=== PATIENT | male | born 1940 | race Two or more races ===

== ENCOUNTER 2022-05-25 12:07 | Emergency (ER) | payer MEDICARE, OTHER, SELFPAY ==
[2022-05-25 12:22] VITALS: BP 142/87; PULSE 63; RESP 16; TEMP 37; O2SAT 99
[2022-05-25 12:24] VITALS: BP 142/87; PULSE 63; RESP 16; TEMP 37; O2SAT 99
--- NOTE | 2022-05-25 13:19 | ED.GENADULT ---
HPI - General Adult General Chief complaint: Dizziness Stated complaint: dizziness, left ear pain, chest congestion Time Seen by Provider: 05/25/22 13:09 Source: patient Mode of arrival: ambulatory Limitations: no limitations History of Present Illness HPI narrative: Patient presents today complaining of a 2 week history of nasal congestion, rhinorrhea with left ear pain and fullness x4 days. He does report a bit of dizziness x2 days that has improved since yesterday. He currently rates his ear pain 2/10 and has been taking Tylenol. Related Data Home Medications Medication Instructions Recorded Confirmed atorvastatin 20 mg tablet mg 05/25/22 donepezil 10 mg tablet mg 05/25/22 eszopiclone 3 mg tablet mg 05/25/22 05/25/22 lisinopril 5 mg tablet mg 05/25/22 metoprolol succinate 25 mg mg PO 05/25/22 tablet,extended release 24 hr nitroglycerin 0.4 mg sublingual mg 05/25/22 tablet Allergies Allergy/AdvReac Type Severity Reaction Status Date / Time No Known Allergies Allergy Unknown Verified 05/25/22 12:23 Review of Systems Review of Systems: CONSTITUTIONAL: Denies body aches, fever, chills, or sweats. EYES: Denies visual changes, redness, or discharge. ENT: Denies sore throat. + left ear pain and fullness, congestion, rhinorrhea CARDIOVASCULAR: Denies chest pain, palpitations, or edema. RESPIRATORY: Denies dyspnea.+ cough GASTROINTESTINAL: Denies abdominal pain, nausea, vomiting, or diarrhea. GENITOURINARY: Denies dysuria or hematuria. SKIN: Denies rash, itching, or wounds. MUSCULOSKELETAL: Denies back pain, joint pain, or myalgia. NEUROLOGIC: Denies headache, numbness, tingling, or weakness.+ dizziness PSYCH: Denies depression or anxiety. PMFSH Comments At time of signature, I have reviewed and agree with nursing past medical, surgical, social and family history unless otherwise noted. Please see nursing chart for further information. There is no relevant family history pertinent to the presenting complaint Exam Narrative: GENERAL: Well-appearing, well-nourished, and in no acute distress. HEAD: Normocephalic, atraumatic. EYES: EOMI. No redness or drainage. Conjunctivae normal. ENT: Mucous membranes pink and moist. Nares congested with rhinorrhea. Right TM normal. Left TM slightly erythematous and bulging with clear fluid. Throat normal. Uvula midline. NECK: Normal AROM. Supple. No lymphadenopathy. CHEST: No respiratory distress. Clear to auscultation. HEART: Regular rate and rhythm. No murmur appreciated. Normal peripheral pulses. EXTREMITIES: Normal range of motion. No edema. SKIN: Warm, dry, no rash. Capillary refill normal. Normal skin turgor. NEURO: No focal deficits. Alert and oriented x3. Gait steady. PSYCH: Normal affect. No signs of depression or anxiety. Course Course Level of Care: Express Care Visit Vital Signs Vital signs: Vital Signs Temperature 98.6 F 05/25/22 12:22 Pulse Rate 63 05/25/22 12:22 Respiratory Rate 16 05/25/22 12:22 Blood Pressure 142/87 H 05/25/22 12:22 Pulse Oximetry 99 05/25/22 12:22 Temperature 98.6 F 05/25/22 12:24 Pulse Rate 63 05/25/22 12:24 Respiratory Rate 16 05/25/22 12:24 Blood Pressure 142/87 H 05/25/22 12:24 Pulse Oximetry 99 05/25/22 12:24 Reviewed. Pt has been instructed to follow up with his PCP regarding his elevated blood pressure today. Medical Decision Making Differential Diagnosis Differential Diagnosis: URI, sinusitis, bronchitis, AOM, otitis externa, serous otitis Vital Signs Vital Signs: Vital Signs Temperature 98.6 F 05/25/22 12:22 Pulse Rate 63 05/25/22 12:22 Respiratory Rate 16 05/25/22 12:22 Blood Pressure 142/87 H 05/25/22 12:22 Pulse Oximetry 99 05/25/22 12:22 Temperature 98.6 F 05/25/22 12:24 Pulse Rate 63 05/25/22 12:24 Respiratory Rate 16 05/25/22 12:24 Blood Pressure 142/87 H 05/25/22 12:24 Pulse Oximetry 99 05/25/22 12:24
== END 2022-05-25 13:30 | disposition home or self-care (01) ==
PROVIDERS: Emergency Provider Nurse Practitioner; PCP Internal Medicine
DX: H66.92 Otitis media, unspecified, left ear (principal); J01.90 Acute sinusitis, unspecified; G30.9 Alzheimer's disease, unspecified; F02.80 Dementia in other diseases classified elsewhere, unspecified severity, without behavioral disturbance, psychotic disturbance, mood disturbance, and anxiety; E78.00 Pure hypercholesterolemia, unspecified; I10 Essential (primary) hypertension; Z98.42 Cataract extraction status, left eye; Z98.41 Cataract extraction status, right eye; Z95.5 Presence of coronary angioplasty implant and graft
CPT/HCPCS: 99203; G0463

== ENCOUNTER 2022-06-17 10:31 | Emergency (ER) | payer MEDICARE, OTHER, SELFPAY ==
--- NOTE | ~2022-06-17 | XR_ITS ---
XR chest 2V DATE: 06/17/2022 11:15 INDICATION: Cough, fever TECHNIQUE: 2 views COMPARISON: 01/10/2011 2 view chest FINDINGS: There is bilateral hyperinflation. No pulmonary infiltrate or consolidation, pleural effusi on or pulmonary vascular congestion or pneumothorax. Heart size is within normal range. There is aortic arch calcification. Diffuse osteopenia. Thoracic dextroscoliosis. Surgical clips overlie the left upper quadrant of the abdomen. IMPRESSION: Bilateral hyperinflation suggesting COPD No active cardiac pulmonary disease Reviewed, dictated and finalized at location A. [employer]
[2022-06-17 11:01] VITALS: BP 158/70; PULSE 83; RESP 16; TEMP 39; O2SAT 97
--- NOTE | 2022-06-17 11:21 | ED.URI ---
HPI - URI/Sore Throat General Chief Complaint: Upper Respiratory Infection Stated Complaint: cough, shoulder/neck pain, congestion Time Seen by Provider: 06/17/22 11:05 Source: patient Mode of arrival: ambulatory Limitations: no limitations History of Present Illness HPI Narrative: Mariusz is a an 81-year-old male patient presenting to the clinic today with complaints of cough, shoulder neck pain, congestion, shortness of breath, dizziness, frequent falling and fever. He reports he was seen here 2 weeks ago was given prescription for prednisone and amoxicillin and that helped however since he has finished his symptoms have began again. His temperature is 39? C in the clinic today MD elicited complaint: sore throat and nasal congestion Related Data Home Medications Medication Instructions Recorded Confirmed atorvastatin 20 mg tablet 20 mg PO DAILY 05/25/22 06/17/22 donepezil 10 mg tablet 10 mg PO DAILY 05/25/22 06/17/22 eszopiclone 3 mg tablet 3 mg PO DAILY 05/25/22 06/17/22 lisinopril 5 mg tablet 5 mg PO DAILY 05/25/22 06/17/22 metoprolol succinate 25 mg 12.5 mg PO DAILY 05/25/22 06/17/22 tablet,extended release 24 hr nitroglycerin 0.4 mg sublingual 0.4 mg sublingual DIRECTED PRN 05/25/22 06/17/22 tablet Chest Pain Allergies Allergy/AdvReac Type Severity Reaction Status Date / Time No Known Allergies Allergy Unknown Verified 06/17/22 11:01 Review of Systems Review of Systems: Pertinent positives per HPI. Patient denies any rash, headache, visual changes, dizziness, chest pain, palpitations, nausea, vomiting, diarrhea, constipation, abdominal pain, or any urinary issues. PMFSH Comments At the time of my signature, I reviewed and agree with the nursing past medical, surgical, social, and family history. There is no relevant family history pertinent to the patient complaint. Exam Narrative: General: Well-developed, well nourished, in no apparent distress Head: Normocephalic, atraumatic Eyes: Pupils equally round and reactive to light bilaterally, EOM intact, sclera and conjunctive clear, no discharge, lids normal Ears: TMs intact and clear, ear canals clear, no drainage, grossly hearing normal. Nose: Nares patent, no discharge, no inflammation, no sinus tenderness. Mouth: Oral pharynx without lesions or masses, good dentition, MMM. Neck: Supple, trachea midline, no enlargement of anterior or posterior cervical nodes, no thyroid masses or goiter palpable. Cardio: Regular rate and rhythm, s1 and s2 normal, no murmur appreciated. Resp: Diminished breath sounds with faint crackles in the lower bases, no rhonchi, wheezing or rubs Course Course Emergency Course: Portions of this record may have been created with voice recognition software. Level of Care: Express Care Visit Vital Signs Vital signs: Vital Signs Temperature 39.0 C H 06/17/22 11:01 Pulse Rate 83 06/17/22 11:01 Respiratory Rate 16 06/17/22 11:01 Blood Pressure 158/70 H 06/17/22 11:01 Pulse Oximetry 97 06/17/22 11:01 Temperature 39.0 C H 06/17/22 11:01 Pulse Rate 83 06/17/22 11:01 Respiratory Rate 16 06/17/22 11:01 Blood Pressure 158/70 H 06/17/22 11:01 Pulse Oximetry 97 06/17/22 11:01 Vital signs reviewed Transfer Transfered to: [facility] Transportation: Other (Private car) Transfer rationale: Shortness of breath, unsteady gait, feeling dizzy, coughing congestion, COPD Accepting physician: Love RN took a reports but would not give a accepting provider Transfer comments: Transfer via private car MDM - URI/Sore Throat MDM Narrative Medical decision making narrative: At the time of visit patient is resting comfortably in the exam chair. COVID and influenza testing was negative in the clinic today chest x-ray suggestive of COPD. No pneumonia seen. I feel that the patient needs further workup in the emergency room to get some blood testing done. Patient would like to go to [facility]
[2022-06-17 11:50] VITALS: TEMP 37.7
== END 2022-06-17 11:50 | disposition short-term general hospital (02) ==
PROVIDERS: Emergency Provider Nurse Practitioner Family; PCP Internal Medicine
DX: J44.1 Chronic obstructive pulmonary disease with (acute) exacerbation (principal); J06.9 Acute upper respiratory infection, unspecified; Z20.822 Contact with and (suspected) exposure to COVID-19; G30.9 Alzheimer's disease, unspecified; F02.80 Dementia in other diseases classified elsewhere, unspecified severity, without behavioral disturbance, psychotic disturbance, mood disturbance, and anxiety; E78.00 Pure hypercholesterolemia, unspecified; I10 Essential (primary) hypertension; Z95.5 Presence of coronary angioplasty implant and graft; Z98.42 Cataract extraction status, left eye; Z98.41 Cataract extraction status, right eye
CPT/HCPCS: 71046; 87426; 87804; 99213; C9803; G0463

== ENCOUNTER 2024-11-26 15:23 | Emergency (ER) | payer OTHER, MEDICARE, SELFPAY ==
--- NOTE | ~2024-11-26 | XR_ITS ---
HISTORY: laceration, injury, PATIENT BANDAGED, UNABLE TO REMOVE COMPARISON: None TECHNIQUE: 2 views of the right third digit were performed FINDINGS: No acute or subacute fracture. 2.7 mm osseous density anterior to the distal third of the third metacarpal for which a small avulsio n fracture is suspected. Joint spaces are narrowed but preserved and alignment is maintained. Soft tissues are unremarkable without radiopaque foreign body or significant calcification. Age-appropriate mineralization. IMPRESSION: Findings anterior to the distal third of the third metacarpal which a small avulsion fra cture is suspected. Reviewed, dictated and finalized at location A. IMPRESSION: Findings anterior to the distal third of the third metacarpal whic h a small avulsion fracture is suspected.
--- OUTSIDE RECORDS SUMMARY | 2024-11-26 15:28 | XMS_ITS | Clinical Summary ---
Author Organization [facility] Address [address] [place] [address] Care Team Providers Care Process Engineer Name Role Phone Calvin White MD Primary Care Provider Source Comments [facility],non-owned Affiliates and Associated Physician Practices is amultiple site organization consisting of ambulatory clinics and hospital sitesin [place], [place], [place] and [place]. This disclosure is being madepursuant to the Care Everywhere program and may not contain all information available regarding this patient. Last updated 18.[facility] Allergies No known active allergies Medications * Be aware that medications may not be up to date on this document. Alwaysverify current medications with the patient. aspirin (ASPIRIN) 81 MG tablet Take 81 mg by mouth once daily Active atorvastatin (LIPITOR) 20 MG tablet Take 20 mg by mouth at bedtime Active LISINOPRIL PO Active METOPROLOL SUCCINATE ER PO Acti ve Social History Tobacco Use Types Packs/Day Years Used Date Smoking Tobacco: Former Cigarettes Smokeless Tobacco: Never Sex and Gender Information Value Date Recorded Sex Assigned at Not on file Legal Sex Male 10:23 AM CDT Gender Identity Not on file Sexual Orientation Not on file Last Filed Vital Signs Vital Sign Reading Time Taken Comments Blood Pressure 128/68 03/30/2017 10:47 AM CDT Pulse 62 03/30/2017 10:47 AM CDT Temperature 36.6 C (97.8 F) 03/30/2017 10:47 AM CDT Respiratory Rate 16 03/30/2017 10:47 AM CDT Oxygen Saturation 98% 03/30/2017 10:47 AM CDT Inhaled Oxygen Concentration - - Weight 72.6 kg (160 lb) 03/30/2017 10:47 AM CDT Height 170.2 cm (5' 7 ) 03/30/2017 10:47 AM CDT Body Mass Index 25.06 03/30/2017 10:47 AM CDT Plan of Treatment Health Maintenance Due Date Last Done Comments DTAP/TDAP/TD VACCINES (1 - Tdap) 1958 PNEUMOCOCCAL VACCINE 50+ (1 of 1 - PCV) 1989 ZOSTER VACCINE (1 of 2) 1989 Respiratory Syncytial Virus (RSV) Vaccine Pt: or over 60 yrs (1 - 1-dose 75+ series) 2014 COVID-19 VACCINE ( - 2023-2 5 season) 2024 DEPRESSION SCREENING 07/23/2024 INFLUENZA VACCINE (Season Ended) 2025 HEPATITIS B VACCINE Aged Out No longe r eligible based on patient's age to complete this topic HIB VACCINE Aged Out No longer eligi ble based on patient's age to complete this topic HPV VACCINE Aged Out No longer eligi ble based on patient's age to complete this topic MENINGOCOCCAL (Group B) VACC INE SHARED DECISION-MAKING Aged Out No longer eligibl e based on patient's age to complete this topic MENINGOCOCCAL GROUPS A/C/Y/W VACCINE Aged Out No longer eligible b ased on patient's age to complete this topic Insurance MEDICARE [employer] Care [employer] Process Engineer Relationship Specialty Start Date End Date Calvin White MD [address] [place] [address] PCP - General Internal Medicine 03/30/17
--- OUTSIDE RECORDS SUMMARY | 2024-11-26 15:28 | XMS_ITS | Referral Summary ---
Author Organization [facility] Address [address] [place] [address] Care Team Providers Care Bandoleer Packer Name Role Phone Calvin White MD Primary Care Provider Encounters Date Type Department Care Team Description 10/30/2024 1:20 PM CDT Office Visit [facility] [address] [place] [address] Medical Office Building [address] [place] [phone] Jessa Rodrigez, CONVERTING SUPERVISOR Benign prostatic hyperplasia with weak urinary stream (Primary Dx); Nocturia 09/04/2024 1:00 PM VIDEO EFFECTS EDITOR Office Visit [facility] Medical Office Building [address] [place] [phone] Jessa Rodrigez, MARVIN Weak urinary stream (Primary Dx); Mixed stress and urge urinary incontinence 09/03/2024 11:00 AM VIDEO EFFECTS EDITOR Office Visit [address] [phone] Calvin White MD Urinary incontinence, unspecified type (Primary Dx); Urinary frequency from Last 3 Months Allergies No known active allergies Medications aspirin 81 mg tabletIndicatio ns:Myocardial Reinfarction Prevention,prev ention of thrombosis Take 1 tablet (81 mg total) by mouth nightly 07/07/20 14 Active cyanocobalamin (Vitamin B-12) 1,000 mcg tabletIndicatio ns:Prevention of Vitamin B12 Deficiency Take 1 tablet (1,000 mcg total) by mouth daily with lunch Active acetaminophen (TYLENOL) 500 mg tablet Take 1 tablet (500 mg total) by mouth every 6 (six) hours as needed for pain Active ibuprofen (ADVIL,MOTRIN) 200 mg tab/cap Take 1 tablet/capsule (200 mg total) by mouth every 6 (six) hours as needed for pain Active loratadine (CLARITIN) 10 mg tabletIndicatio ns:Allergic Rhinitis Take 1 tablet (10 mg total) by mouth every morning Active lisinopriL (PRINIVIL,ZESTR IL) 5 mg tablet Take 1 tablet (5 mg total) by mouth daily 90 tablet 3 07/30/19 24 Active donepeziL (ARICEPT) 10 mg tablet TAKE 1 TABLET BY MOUTH EVERY NIGHT 90 tablet 3 11/01/19 24 Active nebivoloL (BYSTOLIC) 5 mg tablet Take 1 tablet (5 mg total) by mouth daily 90 tablet 3 05/29/20 24 2024 Active Additional Information Patient not taking.Reason: Side effects (holding due to bradycadia), Reported on 09/03/2024 eszopiclone (LUNESTA) 3 mg tablet Take 1 tablet (3 mg total) by mouth nightly 90 tablet 1 09/03/19 25 Active finasteride (PROSCAR) 5 mg tablet Take 1 tablet (5 mg total) by mouth daily 90 tablet 3 09/03/19 25 Active nitroglycerin (Nitrostat) 0.4 mg SL tablet Take 1 tablet (0.4 mg total) by mouth every 5 (five) minutes as needed for chest pain Up to 3 doses in a 15 minute period. If chest pain still persists, call 911. 25 tablet 3 09/11/19 25 Active tamsulosin (FLOMAX) 0.4 mg extended release capsuleIndicati ons:Nocturia Take 1 capsule (0.4 mg total) by mouth daily 90 capsule 3 10/31/19 25 Active atorvastatin (LIPITOR) 20 mg tablet Take 1 tablet by mouth nightly 90 tablet 3 11/13/19 25 Active atorvastatin (LIPITOR) 20 mg tablet Take 1 tablet (20 mg total) by mouth nightly 90 tablet 07/28/19 25 2024 Discontinued tamsulosin (FLOMAX) 0.4 mg extended release capsuleIndicati ons:Weak urinary stream Take 1 capsule (0.4 mg total) by mouth daily 90 capsule 3 09/04/19 25 2024 Discontinued(R eorder) tamsulosin (FLOMAX) 0.4 mg extended release capsuleIndicati ons:Nocturia Take 1 capsule (0.4 mg total) by mouth daily 90 capsule 3 10/31/19 25 2024 Discontinued(R eorder) Active Problems Problem Noted Date Diagnosed Date PVD (posterior vitreous detachment), both eyes 1 08/11/2022 Assessment & Plan (06/16/2024 10:43 AM VIDEO EFFECTS EDITOR): -no untreated retinal breaks OU -s/s RD/RT discussed; RTC SAMANTHA if any symptoms arise -follow annually Assessment & Plan (06/11/2023 2:37 PM VIDEO EFFECTS EDITOR): -no untreated retinal breaks OU -s/s RD/RT discussed; RTC SAMANTHA if any symptoms arise -follow annually Pterygium of right eye 03/08/2021 Assessment & Plan (06/16/2024 10:43 AM VIDEO EFFECTS EDITOR): -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 OD -no effect on vision -can use pres free ATs with any irritation if needed -follow Assessment & Plan (06/11/2023 2:37 PM VIDEO EFFECTS EDITOR): -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 OD -no effect on vision -can use pres free ATs with any irritation if needed -follow Assessment & Plan (03/08/2021 11:17 AM CDT): Stable last year; no effect on vision at this time -recommend sunglasses when outside; art tears PRN Pseudophakia of both eyes 07/29/2020 Assessment & Plan (06/16/2024 10:43 AM VIDEO EFFECTS EDITOR): -clear and centered OU -continue with OTC readers -follow Assessment & Plan (06/11/2023 2:36 PM VIDEO EFFECTS EDITOR): -clear and centered OU -continue with OTC readers -follow Assessment & Plan (03/08/2021 11:16 AM CDT): Clear and centered both eyes (OU) -doing well; okay to cont with OTC readers +still has some glare at night; could try yellow tinted lens for night time if he would like Assessment & Plan (09/17/2020 3:47 PM VIDEO EFFECTS EDITOR): Post-operative week #6 s/p CE-IOL left eye (OS): Doing well. No significant inflammation. Pressure acceptable Off all gtts. Refraction not needed. Pt does not want bifocals. Plan for follow-up with Dr. Mckeon for routine eye care Assessment & Plan (08/09/2020 3:47 PM VIDEO EFFECTS EDITOR): Post-operative week #1 s/p CE-IOL left eye (OS): Doing well. Expected amount of inflammation. Pressure acceptable Continue taking: Prednisolone acetate tapering to TID -> BID -> qday each week starting today Stop ofloxacin Reviewed signs/symptoms endophthalmitis, RT/RD; patient to call immediately if any worsening vision, pain, redness, flashes/floaters/curtains Avoid lifting/bending/swimming for one more week. Protective eyewear during day. Okay to discontinue Rowan shield at night. Went over written instructions for drop schedule Plan for follow-up in about 3 weeks Assessment & Plan (07/29/2020 11:05 AM VIDEO EFFECTS EDITOR): Post-operative day #1 s/p CE-IOL left eye (OS): Doing well. Expected amount of inflammation. Pressure acceptable Start taking: Prednisolone QID left eye (OS) Antibiotic QID left eye (OS) Continue off drops in right eye (OD) Reviewed signs/symptoms endophthalmitis, RT/RD; patient to call immediately if any worsening vision, pain, redness, flashes/floaters/curtains No lifting/bending/swimming. Rowan shield while sleeping, protective eyewear during day Written instructions for drop schedule provided Plan for follow-up in 1 week Anatomical narrow angle 03/09/2020 Assessment & Plan (06/16/2024 10:43 AM VIDEO EFFECTS EDITOR): -s/p CEIOL with deep AC OU -follow Assessment & Plan (06/11/2023 2:36 PM VIDEO EFFECTS EDITOR): -now s/p CEIOL with deep AC OU -follow Assessment & Plan (04/15/2020 8:16 PM CDT): Narrow on exam Plan for CEIOL OU Cerebral amyloid angiopathy 11/04/2018 Essential hypertension 04/23/2018 Late onset Alzheimer's disea se without behavioral disturbance 03/29/2018 Mild cognitive impairment 06/05/2017 Benign prostatic hyperplasia 11/17/2016 CAD (coronary artery disease) 01/20/2016 Benign hypertension 05/15/2015 Hyperlipidemia 03/23/2014 Chávez's esophagus 02/02/2014 Vitamin D deficiency 02/02/2014 Hypercholesterolemia 05/31/2013 Carotid bruit 05/29/2013 Resolved Problems Problem Noted Date Diagnosed Date Resolved Date Combined forms of age-relate d cataract of right eye 04/19/2020 03/08/2021 Overview (04/19/2020): Added automatically from request for surgery [id number] Assessment & Plan (07/03/2020 10:13 AM VIDEO EFFECTS EDITOR): POM1 Phaco/IOL/ right eye 06/03/20 Off all drops doing well Plan for CEIOL OS Plan for phaco/IOL left eye Assessment & Plan (06/05/2020 9:15 AM VIDEO EFFECTS EDITOR): POW1 Phaco/IOL/ right eye 06/03/20 Postoperative instructions were given. The patient is to use: Prednisolone Acetate 1% QID with taper over 3 weeks Signs, symptoms of retinal detachment, tear, hole, and endophthalmitis were reviewed and the patient is to call immediately for concerns. We discussed that things should improve until they stabilize. Should there be any worsening of pain, vision, or redness the patient is to call. Plan for phaco/IOL left eye Assessment & Plan (05/30/2020 10:56 PM VIDEO EFFECTS EDITOR): POD1 Phaco/IOL/ right eye 06/03/20 Postoperative instructions were given. The patient is to use: Moxifloxacin QID X 1 week Prednisolone Acetate 1% QID Patient is to wear the shield at bedtime X 1 week. Signs, symptoms of retinal detachment, tear, hole, and endophthalmitis were reviewed and the patient is to call immediately for concerns. We discussed that things should improve until they stabilize. Should there be any worsening of pain, vision, or redness the patient is to call. Followup 1 week or sooner prn if issues. Combined forms of age-relate d cataract of both eyes 03/09/2020 03/08/2021 Assessment & Plan (04/16/2020 11:05 AM CDT): Visually significant OU Plan for CEIOL OU The patient understands the risks, benefits, alternatives and wishes to proceed with cataract surgery. We discussed the target and the patient elects target plano. We discussed toric and multifocal lens options as well as laser assisted wounds however I prefer a manual technique here. The patient understands glasses are a possibility and is comfortable proceeding with a monofocal lens. Book Phaco/IOL/ right eye. IOLM today Assessment & Plan (03/09/2020 10:28 AM CDT): Visually significant both eyes (OU); complains of glare at night and decreased vision -only minimal improvement with refraction today -recommend cataract extraction (CE); will schedule next available Left inguinal hernia 07/18/2018 019 Overview (07/18/2018): Added automatically from request for surgery [id number] Left groin hernia 06/05/2018 08/19/2018 Chest wall pain 05/05/2014 08/20/2019 Immunizations Immunization Administration Dates Next Due Influenza, Quadrivalent, Hig h Dose, Preservative Free, Intrr 04/17/2023,04/16/2022,03/24/2020 Influenza, Quadrivalent, Spl it, Preservative Free, Intramuscular 03/11/2021 Influenza, Trivalent, Adjuva nted, Intramuscular 06/05/2018 Influenza, Trivalent, High D ose, Split, Preservative Free, Intramuscular 05/09/2019,05/23/2017,05/12/2016 Moderna SARS-CoV-2 Monovalen t Vaccination (12+ YRS) 09/30/2020,09/02/2020 Pneumococcal Conjugate PCV 13 11/17/2015, 015 Pneumococcal Polysaccharide PPV23 05/23/2017 RSV Vaccine, Pref, Recombina nt, Subunit, Adjuvanted, PF, IM (Arexvy) 04/17/2023 Tdap 12/03/2018 Social History Tobacco Use Types Packs/Day Years Used Date Smoking Tobacco: Former Cigarettes 1 15 1 955 - 1970 Passive Smoke Exposure: Never Smokeless Tobacco: Never Tobacco Cessation:Counseling Given: Yes Alcohol Use Standard Drinks/Week Comments Yes 1 (1 standard drink = 0.6 oz pur e alcohol) rare PHQ-2 Answer Date Recorded PHQ-2 Total Score (If total score is 3 or more points, staff should administer the PHQ-9) 0 09/03/2024 Sex and Gender Information Value Date Recorded Sex Assigned at Not on file Legal Sex Male 11:10 AM VIDEO EFFECTS EDITOR Gender Identity Not on file Sexual Orientation Not on file Last Filed Vital Signs Vital Sign Reading Time Taken Comments Blood Pressure 166/81 09/04/2024 1:22 PM VIDEO EFFECTS EDITOR Pulse 54 09/04/2024 1:22 PM VIDEO EFFECTS EDITOR Temperature 36.3 C (97.4 F) 09/04/2024 1:22 PM VIDEO EFFECTS EDITOR Respiratory Rate 18 09/04/2024 1:22 PM VIDEO EFFECTS EDITOR Oxygen Saturation 100% 09/04/2024 1:22 PM VIDEO EFFECTS EDITOR Inhaled Oxygen Concentration - - Weight 69.4 kg (153 lb) 09/03/2024 10:54 AM VIDEO EFFECTS EDITOR Height 170.2 cm (5' 7 ) 05/29/2024 8:32 AM VIDEO EFFECTS EDITOR Body Mass Index 23.96 05/29/2024 8:32 AM VIDEO EFFECTS EDITOR Plan of Treatment Not on file Medical Devices Implanted Type Area Fretted Instrument Inspector Device Identifier Shelf Expiration Date Model / Serial / Lot creads [id number] - [id number] - [id number] Implanted:Qty: 1 on 06/03/2020 by Jenifer Ugarte MD at [facility] Lens Right: Eye creads [id number] 11/19/2022 [id number] / [id number] [id number] - [id number] - [id number] Implanted:Qty: 1 on 07/29/2020 by Jenifer Ugarte MD at [facility] Lens Left: Lens [employer] 05/22/2022 [id number] / [id number] / [id number] [employer]/C R Bard [id number] Soft Mesh 6x6in Patch Knitted Flat Sheet Groin Hernia Square Mesh - Sn/A - [id number] Implanted:Qty: 1 on 07/30/2018 by Jenifer Ellis MD at [facility] Mesh [employer] Bard [id number] 04/19/2023 [id number] / N/A / [id number] Stent Stent N/A: Heart Procedures Procedure Name Priority Date/Time Associated Diagnosis Comments MEASURE POST VOID RESIDUAL Routine 10/30/2024 2:05 PM CDT Benign prostatic hyperplasia with weak urinary stream MEASURE POST VOID RESIDUAL Routine 09/04/2024 1:23 PM VIDEO EFFECTS EDITOR Weak urinary stream from Last 3 Months Results * Measure post void residual (10/30/2024 2:05 PM CDT) Vaishnavi Ramos LPN - 10/30/2024 2:05 PM CDT Measurement of post-voiding residual urine and/or bladder capacity by ultrasound, non-imaging. PVR = 92 mL us Jessa Rodrigez CONVERTING SUPERVISOR NURSING ASSESSMENTS Final Res ult * Measure post void residual (09/04/2024 1:23 PM VIDEO EFFECTS EDITOR) Narrative Vaishnavi Deluca LPN - 09/04/2024 1:23 PM VIDEO EFFECTS EDITOR Measurement of post-voiding residual urine and/or bladder capacity by ultrasound, non-imaging. PVR = 5 mL us Jessa Rodrigez CONVERTING SUPERVISOR NURSING ASSESSMENTS Final Res ult from Last 3 Months Insurance [employer] MEDICARE [employer] website OPEN ACCESS MEDICARE [place] [facility] [id number] Care Teams Bandoleer Packer Relationship Specialty Start Date End Date Calvin White MD [address] [place] [address] PCP - General 10/14/17
--- OUTSIDE RECORDS SUMMARY | 2024-11-26 15:28 | XMS_ITS | Clinical Summary ---
Author Organization [facility] Address [address] [place] [address] Care Team Providers Care Digital Ad Trafficker Name Role Phone Calvin White MD Primary Care Provider Allergies No known active allergies Medications aspirin [...] total) by mouth daily 90 tablet 3 11/07/2024 Active Additional Information Patient not taking.Reason: Side effects (holding due to bradycadia), Reported on 09/03/2024 eszopiclone (LUNESTA) 3 mg tablet Take 1 tablet (3 mg total) by mouth nightly 90 tablet 1 09/03/19 Active finasteride (PROSCAR) 5 mg tablet Take 1 tablet (5 mg total) by mouth daily 90 tablet 09/03/19 Active nitroglycerin (Nitrostat) 0.4 mg SL tablet Take 1 tablet (0.4 mg total) by mouth every 5 (five) minutes as needed for chest pain Up to 3 doses in a 15 minute period. If chest pain still persists, call 911. 25 tablet 09/11/19 Active tamsulosin (FLOMAX) 0.4 mg extended release capsuleIndicati ons:Nocturia Take 1 capsule (0.4 mg total) by mouth daily 90 capsule 3 10/31/19 Active atorvastatin (LIPITOR) 20 mg tablet Take 1 tablet by mouth nightly 90 tablet 11/13/19 Active atorvastatin (LIPITOR) 20 mg tablet Take [...] mg total) by mouth daily 90 capsule 10/31/19 25 2024 Discontinued(R eorder) Active Problems Problem Noted Date Diagnosed Date PVD (posterior vitreous detachment), both eyes 1 08/11/2022 Assessment & Plan (06/16/2024 10:43 AM ACID SUPERVISOR): -no untreated retinal breaks OU -s/s RD/RT discussed; RTC SAMANTHA if any symptoms arise -follow annually Assessment & Plan (06/11/2023 2:37 PM ACID SUPERVISOR): -no untreated retinal breaks OU -s/s RD/RT discussed; RTC SAMANTHA if any symptoms arise -follow annually Pterygium of right eye 03/08/2021 Assessment & Plan (06/16/2024 10:43 AM ACID SUPERVISOR): -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 OD -no effect on vision -can use pres free ATs with any irritation if needed -follow Assessment & Plan (06/11/2023 2:37 PM ACID SUPERVISOR): -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 OD -no effect on vision -can use pres free ATs with any irritation if needed -follow Assessment & Plan (03/08/2021 11:17 AM CDT): Stable last year; no effect on vision at this time -recommend sunglasses when outside; art tears PRN Pseudophakia of both eyes 07/29/2020 Assessment & Plan (06/16/2024 10:43 AM ACID SUPERVISOR): -clear and centered OU -continue with OTC readers -follow Assessment & Plan (06/11/2023 2:36 PM ACID SUPERVISOR): -clear and centered OU -continue with OTC readers -follow Assessment & Plan (03/08/2021 11:16 AM CDT): Clear and centered both eyes (OU) -doing well; okay to cont with OTC readers +still has some glare at night; could try yellow tinted lens for night time if he would like Assessment & Plan (09/17/2020 3:47 PM ACID SUPERVISOR): Post-operative week #6 s/p CE-IOL left eye (OS): Doing well. No significant inflammation. Pressure acceptable Off all gtts. Refraction not needed. Pt does not want bifocals. Plan for follow-up with Dr. Mckeon for routine eye care Assessment & Plan (08/09/2020 3:47 PM ACID SUPERVISOR): Post-operative week #1 s/p CE-IOL left eye [...] weeks Assessment & Plan (07/29/2020 11:05 AM ACID SUPERVISOR): Post-operative day #1 s/p CE-IOL left eye [...] 03/09/2020 Assessment & Plan (06/16/2024 10:43 AM ACID SUPERVISOR): -s/p CEIOL with deep AC OU -follow Assessment & Plan (06/11/2023 2:36 PM ACID SUPERVISOR): -now s/p CEIOL with deep AC OU [...] (04/19/2020): Added automatically from request for surgery [id number] Assessment & Plan (07/03/2020 10:13 AM ACID SUPERVISOR): POM1 Phaco/IOL/ right eye 06/03/20 Off all drops doing well Plan for CEIOL OS Plan for phaco/IOL left eye Assessment & Plan (06/05/2020 9:15 AM ACID SUPERVISOR): POW1 Phaco/IOL/ right eye 06/03/20 Postoperative instructions [...] eye Assessment & Plan (05/30/2020 10:56 PM ACID SUPERVISOR): POD1 Phaco/IOL/ right eye 06/03/20 Postoperative instructions [...] (07/18/2018): Added automatically from request for surgery [id number] Left groin hernia 06/05/2018 08/19/2018 Chest wall pain 05/05/2014 08/20/2019 Encounters Date Type Department Care Team Description 10/30/2024 1:20 PM CDT Office Visit [facility] [address] [place] [address] Medical Office Building [address] [place] [phone] Jessa Rodrigez, TURNTABLE ENGINEER Benign prostatic hyperplasia with weak urinary stream (Primary Dx); Nocturia 09/04/2024 1:00 PM ACID SUPERVISOR Office Visit [facility] [address] [place] [address] Medical Office Building [address] [place] [phone] Jessa Rodrigez, TURNTABLE ENGINEER Weak urinary stream (Primary Dx); Mixed stress and urge urinary incontinence 09/03/2024 11:00 AM ACID SUPERVISOR Office Visit [address] [phone] Calvin White MD Urinary incontinence, unspecified type (Primary Dx); Urinary frequency from Last 3 Months Immunizations Immunization Administration Dates Next Due Influenza, [...] Adjuvanted, PF, IM (Arexvy) 04/17/2023 Tdap 12/03/2018 Surgical History Surgery Date Site/Laterality Comments [place] UNLISTED PROCEDURE VASCULAR INJECTION Arterial Catheterization - -01/16/11 (Added by TW Conv) SINUS SURGERY 07/23/1993 - 07/22/1994 Sinus Surgery - (Added by TW Conv) [place] TONSILLECTOMY PRIMARY/SECONDARY <AGE 12 Tonsillectomy - (Added by TW Conv) [place] UNLISTED PROCEDURE ABDOMEN PERITONEUM & OMENTUM Hernia Repair - (Added by TW Conv) [place] PRQ TRLUML CORONARY STENT W/ANGIO ONE ART/BRNCH Cath Stent Placement - -01/16/11 (Added by TW Conv) [place] PRQ TRLUML CORONARY STENT W/ANGIO ONE ART/BRNCH Cath Stent Placement - (Added by TW Conv) ESOPHAGEAL DILATION Esophageal Dilation - (Added by TW Conv) [place] ESOPHAGOSCOPY FLEXIBLE TRANSORAL DIAGNOSTIC Fiberoptic Examinations Esophagoscopy - (Added by TW Conv) MONY FUNDOPLICATION 07/23/2013 - 07/22/2014 CARDIAC CATHETERIZATION 2013 COLONOSCOPY Medical History Medical History Date Comments Gastroesophageal reflux disease GERD Personal history of arthritis Ar thritis - (Added by TW Conv) Pure hypercholesterolemia Hyperc holesterolemia - (Added by TW Conv) Hypertension Dyslipidemia CAD (coronary artery disease) Dementia (HCC) Myocardial infarction (HCC) Pneumonia Allergic rhinitis Family History Medical History Relation Name Comments Prostate cancer Brother 1 Prostate Can cer - (Added by TW Conv) Heart disease Brother 2 Heart Disease - (Added by TW Conv) Cancer Brother 3 Family history of cancer - (Added by TW Conv) Coronary artery disease Father Dali nary Artery Bypass Graft; Diabetes Father Family history of diabetes mellitus - (Added by TW Conv) Heart attack Father Myocardial Infa rction; Heart disease Father Heart Disease - (Added by TW Conv) Heart failure Father Family history of heart failure - (Added by TW Conv) Anesthesia problems Neg Hx Relation Name Status Comments Brother 1 Brother 2 Brother 3 Father Alive Social History Tobacco Use Types Packs/Day Years [...] on file Legal Sex Male 11:10 AM ACID SUPERVISOR Gender Identity Not on file Sexual Orientation Not on file Obstetrics History Last Filed Vital Signs Vital Sign Reading Time Taken Comments Blood Pressure 166/81 09/04/2024 1:22 PM ACID SUPERVISOR Pulse 54 09/04/2024 1:22 PM ACID SUPERVISOR Temperature 36.3 C (97.4 F) 09/04/2024 1:22 PM ACID SUPERVISOR Respiratory Rate 18 09/04/2024 1:22 PM ACID SUPERVISOR Oxygen Saturation 100% 09/04/2024 1:22 PM ACID SUPERVISOR Inhaled Oxygen Concentration - - Weight 69.4 kg (153 lb) 09/03/2024 10:54 AM ACID SUPERVISOR Height 170.2 cm (5' 7 ) 05/29/2024 8:32 AM ACID SUPERVISOR Body Mass Index 23.96 05/29/2024 8:32 AM ACID SUPERVISOR Plan of Treatment Health Maintenance Due Date Last Done Comments Hepatitis B Screening 1958 Zoster Vaccine (1 of 2) 1989 Covid-19 Vaccine (2023-2 5 season) 2024 04/17/2023, 04/16/2022, 10/21/2021, Additional history exists Fall Risk Assessment 02/14/2025 02/15/2024, 02/13/2023, 02/11/2021, Additional history exists Well Visit 65+ 02/14/2025 02/15/2024, 01/21, 02/13/2023, Additional history exists Influenza Vaccine (Season Ended) 2025 04/17/2023, 04/16/2022, 03/11/2021, Additional history exists Depression Screening 09/03/2025 09/03/2024, 02/15/2024, 08/17/2023, Additional history exists DTaP/Tdap/Td Vaccine (2 - Td or Tdap) 12/03/2028 12/03/2018 Pneumococcal vaccine 65+ Completed 017, 11/17/2015, 11/12/2014 Medical Devices Implanted Type Area Drywall Taper Helper Device Identifier Shelf Expiration Date Model / Serial / Lot [employer] [id number] - [id number] - [id number] Implanted:Qty: 1 on 06/03/2020 by Jenifer Ugarte MD at [facility] Lens Right: Eye [employer] [id number] 11/19/2022 [id number] / [id number] [employer] [id number] - [id number] - [id number] Implanted:Qty: 1 on 07/29/2020 by Jenifer Ugarte MD at [facility] Lens Left: Lens [employer] 05/22/2022 [id number] / [id number] [employer]/C R Bard [id number] Soft Mesh 6x6in Patch Knitted Flat Sheet Groin Hernia Square Mesh - Sn/A - [id number] Implanted:Qty: 1 on 07/30/2018 by Jenifer Ellis MD at [facility] Mesh [employer]/C R Bard [id number] 04/19/2023 [id number] / N/A / [id number] Stent Stent N/A: Heart Procedures Procedure Name Priority Date/Time Associated Diagnosis Comments MEASURE POST VOID RESIDUAL Routine 10/30/2024 2:05 PM CDT Benign prostatic hyperplasia with weak urinary stream MEASURE POST VOID RESIDUAL Routine 09/04/2024 1:23 PM ACID SUPERVISOR Weak urinary stream from Last 3 Months Results * Measure post void residual (10/30/2024 2:05 PM CDT) Vaishnavi Ramos LPN - 10/30/2024 2:05 PM CDT Measurement of post-voiding residual urine and/or bladder capacity by ultrasound, non-imaging. PVR = 92 mL Jessa Rodrigez TURNTABLE ENGINEER NURSING ASSESSMENTS Final Res ult * Measure post void residual (09/04/2024 1:23 PM ACID SUPERVISOR) Vaishnavi Ramos LPN - 09/04/2024 1:23 PM ACID SUPERVISOR Measurement of post-voiding residual urine and/or bladder capacity by ultrasound, non-imaging. PVR = 5 mL us Jessa Rodrigez TURNTABLE ENGINEER NURSING ASSESSMENTS Final Res ult from Last 3 Months Insurance AETNA MEDICARE AETNA MEDICARE MEDICARE [facility] OPEN ACCESS MEDICARE [facility] [id number] Care Teams Digital Ad Trafficker Relationship Specialty Start Date End Date Calvin White MD [address] [place] [address] PCP - General 10/14/17
[2024-11-26 15:47] VITALS: BP 135/67; PULSE 55; RESP 17; TEMP 36.4; O2SAT 97
--- NOTE | 2024-11-26 16:23 | ED_ITS ---
HPI - Wound/Laceration General Chief Complaint: Wound/Laceration <Yessy Leigh PA-C - Last Filed: 11/28/24 10:19> Stated Complaint: Right middle finger slammed in sliding door <Yessy Leigh PA-C - Last Filed: 11/28/24 10:19> Time Seen by Provider: 11/26/24 16:23 <Yessy Leigh PA-C - Last Filed: 11/28/24 10:19> Focused HPI: This is a 84 year old male that presents to the ER for injury to the right middle finger. Accidentally shut it in a sliding door. Unsure of last tetanus vaccination. GENERAL: Well-appearing, well-nourished, and in no acute distress. HEAD: Normocephalic, atraumatic. CHEST: Clear to auscultation. ?No respiratory distress. HEART: Regular rate and rhythm.? NEURO: ?Alert and oriented x3. Patient screened in triage and initial orders placed.? ?Additional care and disposition to be based upon?diagnostic testing and treatment. <Yessy Leigh PA-C - Last Filed: 11/28/24 10:19> History of Present Illness HPI narrative: agree with MSE <Swati Bello MD - Last Filed: 11/27/24 01:05> Related Data Home Medications: Home Medications ?Medication ?Instructions ?Recorded ?Confirmed ?Last Taken ?Type atorvastatin 20 mg tablet 20 mg PO DAILY 05/25/22 06/17/22 Unknown History donepezil 10 mg tablet 10 mg PO DAILY 05/25/22 06/17/22 Unknown History eszopiclone 3 mg tablet 3 mg PO DAILY 05/25/22 06/17/22 Unknown History lisinopril 5 mg tablet 5 mg PO DAILY 05/25/22 06/17/22 Unknown History metoprolol succinate 25 mg 12.5 mg PO DAILY 05/25/22 06/17/22 Unknown History tablet,extended release 24 hr nitroglycerin 0.4 mg sublingual 0.4 mg sublingual DIRECTED PRN 05/25/22 06/17/22 Unknown History tablet Chest Pain <GRIFFIN Phillips Last Filed: 11/28/24 10:19> Allergies/Adverse Reactions: Allergies Allergy/AdvReac Type Severity Reaction Status Date / Time No Known Allergies Allergy Unknown Verified 11/26/24 15:24 <Yessy Leigh PA-C - Last Filed: 11/28/24 10:19> Review of Systems Review of Systems: All systems reviewed & are unremarkable except as noted in HPI and below <Swati Bello MD - Last Filed: 11/27/24 01:05> [facility] Past Medical History Medical History: Medical History (Updated 11/28/24 @ 10:19 by Yessy Leigh PA-C) History of hyperlipidemia History of hypertension <Yessy Leigh PA-C - Last Filed: 11/28/24 10:19> Exam Narrative: EXAMINATION OF ORGAN SYSTEMS/BODY AREAS: Constitutional: Vital signs per nursing GENERAL:[No acute distress, non-toxic appearing.] HEAD: Normal with no signs of head trauma. EYES: EOMI, conjunctiva normal ENT: Hearing grossly intact LUNGS: Nonlabored breathing. HEART: [Regular rate and rhythm] ABD: [Soft], [nontender to palpation] EXT: Normal range of motion SKIN: Macerated R 3rd digit tip, gently oozing NEURO: [Alert and oriented x 3. No gross focal sensory or strength deficits.] PSYCH: Normal affect <Swati Bello MD - Last Filed: 11/27/24 01:05> Course Vital Signs Vital signs: Vital Signs Temperature 97.6 F 11/26/24 15:47 Pulse Rate 55 L 11/26/24 15:47 Respiratory Rate 17 11/26/24 15:47 Blood Pressure 135/67 11/26/24 15:47 Pulse Oximetry 97 11/26/24 15:47 Temperature 97.6 F 11/26/24 15:47 Pulse Rate 77 11/26/24 20:42 Respiratory Rate 15 11/26/24 20:42 Blood Pressure 130/74 11/26/24 20:42 Pulse Oximetry 98 11/26/24 20:42 <Yessy Leigh PA-C - Last Filed: 11/28/24 10:19> Vital Signs Temperature 97.6 F 11/26/24 15:47 Pulse Rate 55 L 11/26/24 15:47 Respiratory Rate 17 11/26/24 15:47 Blood Pressure 135/67 11/26/24 15:47 Pulse Oximetry 97 11/26/24 15:47 Temperature 97.6 F 11/26/24 15:47 Pulse Rate 77 11/26/24 20:42 Respiratory Rate 15 11/26/24 20:42 Blood Pressure 130/74 11/26/24 20:42 Pulse Oximetry 98 11/26/24 20:42 <Swati Bello MD - Last Filed: 11/27/24 01:05> Procedures Laceration Laceration 1: Date: 11/27/24 <Swati Bello MD - Last Filed: 11/27/24 01:05> Time: 20:00 <Swati Bello MD - Last Filed: 11/27/24 01:05> Site: hand <Swati Bello MD - Last Filed: 11/27/24 01:05> Side (If applicable): right <Swati Bello MD - Last Filed: 11/27/24 01:05> Size (cm): 4 <Swati Bello MD - Last Filed: 11/27/24 01:05> Description: stellate, flap and irregular <Swati Bello MD - Last Filed: 11/27/24 01:05> Depth: involves muscle layer <Swati Bello MD - Last Filed: 11/27/24 01:05> Pre-repair: wound explored, irrigated extensively, minor debridement, deep structures intact and wound margins revised <Swati Bello MD - Last Filed: 11/27/24 01:05> ====== Skin Level ======: Skin layer closed with: vicryl <Swati Bello MD - Last Filed: 11/27/24 01:05> Size (cm): 4-0 <MD Aruna Womack Last Filed: 11/27/24 01:05> Number of sutures: 10 <Swati Bello MD - Last Filed: 11/27/24 01:05> Technique: simple, interrupted <Swati Bello MD - Last Filed: 11/27/24 01:05> ====== Subcutaneous Layer ======: ====== Muscle Layer ======: ====== Tendon Layer ======: Nerve Block Nerve Block 1: Nerve block date: 11/26/24 <Swati Bello MD - Last Filed: 11/27/24 01:05> Nerve block time: 20:15 <Swati Bello MD - Last Filed: 11/27/24 01:05> Local Anesthetic: lidocaine 1% <Swati Bello MD - Last Filed: 11/27/24 01:05> Amount of anesthesia used (mL): 3 <Swati Bello MD - Last Filed: 11/27/24 01:05> Side: right <Swati Bello MD - Last Filed: 11/27/24 01:05> Nerve Blocks: digital <Swati Bello MD - Last Filed: 11/27/24 01:05> Procedure Successful: Yes <Swati Bello MD - Last Filed: 11/27/24 01:05> Patient Tolerated Procedure: well and no complications <Swati Bello MD - Last Filed: 11/27/24 01:05> MDM - Wound/Laceration MDM Narrative Medical decision making narrative: 84M presents after slamming his R 3rd digit in patio door. Fingertip on exam is just crushed/macerated tissue. XR showing possible tiny avulsion fracture. He has normal ROM and sensation/still bleeding from fingertip. Nail intact. Verbal consent for lac repair and nerve block; patient understands risks of pain, bleeding, possible loss of fingertip or infection. Nerve block, cleaned, and wound margins fixed; wound brought back together with 10, 4-0 interrupted sutures, very complicated repair. Patient tolerated this quite well. Care instructions discussed and strict return precautions. F/u to hand surgery provided. Pt and at bedside agreeable to this plan. <Yessy Leigh PA-C - Last Filed: 11/28/24 10:19> 84M presents after slamming his R 3rd digit in patio door. Fingertip on exam is just crushed/macerated tissue. XR showing possible tiny avulsion fracture. He has normal ROM and sensation/still bleeding from fingertip. Nail intact. Verbal consent for lac repair and nerve block; patient understands risks of pain, bleeding, possible loss of fingertip or infection. Nerve block, cleaned, and wound margins fixed; wound brought back together with 10 4-0 interrupted sutures, very complicated repair. Patient tolerated this quite well. Care instructions discussed and strict return precautions. F/u to hand surgery provided. Pt and at bedside agreeable to this plan. <Swati Bello MD - Last Filed: 11/27/24 01:05> Imaging Data Radiologist's impression: ITS Impressions Finger X-Ray 11/26/24 16:41 IMPRESSION: Findings anterior to the distal third of the third metacarpal which a small avulsion fracture is suspected. <Yessy Leigh PA-C - Last Filed: 11/28/24 10:19> Critical Care Time Critical Care Time Critical Care Time: No <Yessy Leigh PA-C - Last Filed: 11/28/24 10:19> Discharge Plan Discharge Clinical Impression: Crush injury to finger Qualifiers: Encounter type: initial encounter Qualified Code(s): S67.10XA - Crushing injury of unspecified finger(s), initial encounter <Yessy Leigh PA-C - Last Filed: 11/28/24 10:19> Patient Disposition: Home <Yessy Leigh PA-C - Last Filed: 11/28/24 10:19> Condition: Stable <Yessy Leigh PA-C - Last Filed: 11/28/24 10:19> Instructions: Care For Your Stitches (ED), Crush Injury (ED) <Yessy Leigh PA-C - Last Filed: 11/28/24 10:19> Additional Instructions: Please keep the injury clean, take medications as prescribed, and if you have any further issues, come back to the hospital. <Yessy Leigh PA-C - Last Filed: 11/28/24 10:19> Patient Language: Citizen [place] <GRIFFIN Phillips Last Filed: 11/28/24 10:19> Prescriptions: New cephalexin 500 mg capsule 500 mg PO Q6H 7 Days Qty: 28 0RF oxycodone 5 mg capsule 5 mg PO Q8H PRN (Reason: pain) Qty: 10 0RF No Action atorvastatin 20 mg tablet 20 mg PO DAILY donepezil 10 mg tablet 10 mg PO DAILY nitroglycerin 0.4 mg tablet, sublingual 0.4 mg sublingual DIRECTED PRN (Reason: Chest Pain) lisinopril 5 mg tablet 5 mg PO DAILY metoprolol succinate 25 mg tablet extended release 24 hr 12.5 mg PO DAILY eszopiclone 3 mg tablet 3 mg PO DAILY <Yessy Leigh PA-C - Last Filed: 11/28/24 10:19> Follow-up/Referrals: Mable Galvez MD [Physician] - 2 Days White,Calvin Fitzgerald MD [Primary Care Provider] - <Yessy Leigh PA-C - Last Filed: 11/28/24 10:19>
[2024-11-26] MEDS: HYDROcodone/acetaminophen (*CRX) 5-325 MG TABLET 1 TAB PO ×2 (16:35→20:37)
[2024-11-26] MEDS: TETANUS,DIPHTHERIA,AC PERTUSSIS ADULT (0.5 ML) BOOSTRIX IM (16:35)
[2024-11-26 18:00] VITALS: BP 170/68; PULSE 86; RESP 17; O2SAT 97
--- OUTSIDE RECORDS SUMMARY | 2024-11-26 20:17 | XMS_ITS | Clinical Summary ---
Author Organization [facility] Address [address] [place] [address] Care Team Providers Care Psych Rn Name Role Phone Calvin White MD Primary [...] 08/11/2022 Assessment & Plan (06/16/2024 10:43 AM CONSTRUCTION CONTRACTOR): -no untreated retinal breaks OU -s/s RD/RT discussed; RTC SAMANTHA if any symptoms arise -follow annually Assessment & Plan (06/11/2023 2:37 PM CONSTRUCTION CONTRACTOR): -no untreated retinal breaks OU -s/s RD/RT discussed; RTC SAMANTHA if any symptoms arise -follow annually Pterygium of right eye 03/08/2021 Assessment & Plan (06/16/2024 10:43 AM CONSTRUCTION CONTRACTOR): -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 OD -no effect on vision -can use pres free ATs with any irritation if needed -follow Assessment & Plan (06/11/2023 2:37 PM CONSTRUCTION CONTRACTOR): -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 OD -no effect on vision -can use pres free ATs with any irritation if needed -follow Assessment & Plan (03/08/2021 11:17 AM CDT): Stable last year; no effect on vision at this time -recommend sunglasses when outside; art tears PRN Pseudophakia of both eyes 07/29/2020 Assessment & Plan (06/16/2024 10:43 AM CONSTRUCTION CONTRACTOR): -clear and centered OU -continue with OTC readers -follow Assessment & Plan (06/11/2023 2:36 PM CONSTRUCTION CONTRACTOR): -clear and centered OU -continue with OTC readers -follow Assessment & Plan (03/08/2021 11:16 AM CDT): Clear and centered both eyes (OU) -doing well; okay to cont with OTC readers +still has some glare at night; could try yellow tinted lens for night time if he would like Assessment & Plan (09/17/2020 3:47 PM CONSTRUCTION CONTRACTOR): Post-operative week #6 s/p CE-IOL left eye (OS): Doing well. No significant inflammation. Pressure acceptable Off all gtts. Refraction not needed. Pt does not want bifocals. Plan for follow-up with Dr. Mckeon for routine eye care Assessment & Plan (08/09/2020 3:47 PM CONSTRUCTION CONTRACTOR): Post-operative week #1 s/p CE-IOL left eye [...] weeks Assessment & Plan (07/29/2020 11:05 AM CONSTRUCTION CONTRACTOR): Post-operative day #1 s/p CE-IOL left eye [...] 03/09/2020 Assessment & Plan (06/16/2024 10:43 AM CONSTRUCTION CONTRACTOR): -s/p CEIOL with deep AC OU -follow Assessment & Plan (06/11/2023 2:36 PM CONSTRUCTION CONTRACTOR): -now s/p CEIOL with deep AC OU [...] (04/19/2020): Added automatically from request for surgery [id number] Assessment & Plan (07/03/2020 10:13 AM CONSTRUCTION CONTRACTOR): POM1 Phaco/IOL/ right eye 06/03/20 Off all drops doing well Plan for CEIOL OS Plan for phaco/IOL left eye Assessment & Plan (06/05/2020 9:15 AM CONSTRUCTION CONTRACTOR): POW1 Phaco/IOL/ right eye 06/03/20 Postoperative instructions [...] eye Assessment & Plan (05/30/2020 10:56 PM CONSTRUCTION CONTRACTOR): POD1 Phaco/IOL/ right eye 06/03/20 Postoperative instructions [...] (07/18/2018): Added automatically from request for surgery [id number] Left groin hernia 06/05/2018 08/19/2018 Chest wall pain 05/05/2014 08/20/2019 Encounters Date Type Department Care Team Description 10/30/2024 1:20 PM CDT Office Visit [facility] [address] [place] [address] Medical Office Building [address] [place] [phone] Jessa Rodrigez, RIVETER HELPER Benign prostatic hyperplasia with weak urinary stream (Primary Dx); Nocturia 09/04/2024 1:00 PM CONSTRUCTION CONTRACTOR Office Visit [facility] [address] [place] [address] Medical Office Building [address] [place] [phone] Jessa Rodrigez, RIVETER HELPER Weak urinary stream (Primary Dx); Mixed stress and urge urinary incontinence 09/03/2024 11:00 AM CONSTRUCTION CONTRACTOR Office Visit [address] [phone] Calvin White MD Urinary incontinence, [...] 12/03/2018 Surgical History Surgery Date Site/Laterality Comments HI UNLISTED PROCEDURE VASCULAR INJECTION Arterial Catheterization - -01/16/11 (Added by TW Conv) SINUS SURGERY 07/23/1993 - 07/22/1994 Sinus Surgery - (Added by TW Conv) HI TONSILLECTOMY PRIMARY/SECONDARY <AGE 12 Tonsillectomy - (Added by TW Conv) HI UNLISTED PROCEDURE ABDOMEN PERITONEUM & OMENTUM Hernia Repair - (Added by TW Conv) HI PRQ TRLUML CORONARY STENT W/ANGIO ONE ART/BRNCH Cath Stent Placement - -01/16/11 (Added by TW Conv) HI PRQ TRLUML CORONARY STENT W/ANGIO ONE ART/BRNCH Cath Stent Placement - (Added by TW Conv) ESOPHAGEAL DILATION Esophageal Dilation - (Added by TW Conv) HI ESOPHAGOSCOPY FLEXIBLE TRANSORAL DIAGNOSTIC Fiberoptic Examinations Esophagoscopy [...] on file Legal Sex Male 11:10 AM CONSTRUCTION CONTRACTOR Gender Identity Not on file Sexual Orientation Not on file Obstetrics History Last Filed Vital Signs Vital Sign Reading Time Taken Comments Blood Pressure 166/81 09/04/2024 1:22 PM CONSTRUCTION CONTRACTOR Pulse 54 09/04/2024 1:22 PM CONSTRUCTION CONTRACTOR Temperature 36.3 C (97.4 F) 09/04/2024 1:22 PM CONSTRUCTION CONTRACTOR Respiratory Rate 18 09/04/2024 1:22 PM CONSTRUCTION CONTRACTOR Oxygen Saturation 100% 09/04/2024 1:22 PM CONSTRUCTION CONTRACTOR Inhaled Oxygen Concentration - - Weight 69.4 kg (153 lb) 09/03/2024 10:54 AM CONSTRUCTION CONTRACTOR Height 170.2 cm (5' 7 ) 05/29/2024 8:32 AM CONSTRUCTION CONTRACTOR Body Mass Index 23.96 05/29/2024 8:32 AM CONSTRUCTION CONTRACTOR Plan of Treatment Health Maintenance Due Date [...] 11/17/2015, 11/12/2014 Medical Devices Implanted Type Area [employer] Communications Sergeant Device Identifier Shelf Expiration Date Model / Serial / Lot [employer] [id number] - [id number] - [id number] Implanted:Qty: 1 on 06/03/2020 by Jenifer Ugarte MD at [facility] Lens Right: Eye [employer] [id number] 11/19/2022 [id number] / [id number] [employer] [id number] - [id number] - [id number] Implanted:Qty: 1 on 07/29/2020 by Jenifer Ugarte MD at [facility] Lens Left: Lens [employer] 05/22/2022 [id number] / [id number] [employer]/C R Bard [id number] Soft Mesh 6x6in Patch Knitted Flat Sheet Groin Hernia Square Mesh - Sn/A - [id number] Implanted:Qty: 1 on 07/30/2018 by Jenifer Ellis MD at [facility] Mesh [employer]/C R Bard [id number] 04/19/2023 [id number] / N/A / [id number] Stent Stent N/A: Heart Procedures Procedure Name Priority Date/Time Associated Diagnosis Comments MEASURE POST VOID RESIDUAL Routine 10/30/2024 2:05 PM CDT Benign prostatic hyperplasia with weak urinary stream MEASURE POST VOID RESIDUAL Routine 09/04/2024 1:23 PM CONSTRUCTION CONTRACTOR Weak urinary stream from Last 3 Months Results * Measure post void residual (10/30/2024 2:05 PM CDT) Vaishnavi Ramos LPN - 10/30/2024 2:05 PM CDT Measurement of post-voiding residual urine and/or bladder capacity by ultrasound, non-imaging. PVR = 92 mL Jessa Rodrigez RIVETER HELPER NURSING ASSESSMENTS Final Res ult * Measure post void residual (09/04/2024 1:23 PM CONSTRUCTION CONTRACTOR) Vaishnavi Ramos LPN - 09/04/2024 1:23 PM CONSTRUCTION CONTRACTOR Measurement of post-voiding residual urine and/or bladder capacity by ultrasound, non-imaging. PVR = 5 mL us Jessa Rodrigez RIVETER HELPER NURSING ASSESSMENTS Final Res ult from Last 3 Months Insurance AETNA MEDICARE AETNA MEDICARE MEDICARE [facility] OPEN ACCESS MEDICARE [facility] [id number] Care Teams Psych Rn Relationship Specialty Start Date End Date Calvin White MD [address] [place] [address] PCP - General 10/14/17
--- OUTSIDE RECORDS SUMMARY | 2024-11-26 20:17 | XMS_ITS | Referral Summary ---
Author Organization [facility] Address [address] [place] [address] Care Team Providers Care Dye Penetrant Testing Technician Name Role Phone Calvin White MD Primary Care Provider Encounters Date Type Department Care Team Description 10/30/2024 1:20 PM CDT Office Visit [facility] [address] [place] [address] Medical Office Building [address] [place] [phone] Jessa Rodrigez, STAINED GLASS INSTALLER Benign prostatic hyperplasia with weak urinary stream (Primary Dx); Nocturia 09/04/2024 1:00 PM QUILL MACHINE TENDER Office Visit [facility] Medical Office Building [address] [place] [phone] Jessa Rodrigez, MARVIN Weak urinary stream (Primary Dx); Mixed stress and urge urinary incontinence 09/03/2024 11:00 AM QUILL MACHINE TENDER Office Visit [address] [phone] Calvin White MD Urinary incontinence, [...] 08/11/2022 Assessment & Plan (06/16/2024 10:43 AM QUILL MACHINE TENDER): -no untreated retinal breaks OU -s/s RD/RT discussed; RTC SAMANTHA if any symptoms arise -follow annually Assessment & Plan (06/11/2023 2:37 PM QUILL MACHINE TENDER): -no untreated retinal breaks OU -s/s RD/RT discussed; RTC SAMANTHA if any symptoms arise -follow annually Pterygium of right eye 03/08/2021 Assessment & Plan (06/16/2024 10:43 AM QUILL MACHINE TENDER): -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 OD -no effect on vision -can use pres free ATs with any irritation if needed -follow Assessment & Plan (06/11/2023 2:37 PM QUILL MACHINE TENDER): -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 OD -no effect on vision -can use pres free ATs with any irritation if needed -follow Assessment & Plan (03/08/2021 11:17 AM CDT): Stable last year; no effect on vision at this time -recommend sunglasses when outside; art tears PRN Pseudophakia of both eyes 07/29/2020 Assessment & Plan (06/16/2024 10:43 AM QUILL MACHINE TENDER): -clear and centered OU -continue with OTC readers -follow Assessment & Plan (06/11/2023 2:36 PM QUILL MACHINE TENDER): -clear and centered OU -continue with OTC readers -follow Assessment & Plan (03/08/2021 11:16 AM CDT): Clear and centered both eyes (OU) -doing well; okay to cont with OTC readers +still has some glare at night; could try yellow tinted lens for night time if he would like Assessment & Plan (09/17/2020 3:47 PM QUILL MACHINE TENDER): Post-operative week #6 s/p CE-IOL left eye (OS): Doing well. No significant inflammation. Pressure acceptable Off all gtts. Refraction not needed. Pt does not want bifocals. Plan for follow-up with Dr. Mckeon for routine eye care Assessment & Plan (08/09/2020 3:47 PM QUILL MACHINE TENDER): Post-operative week #1 s/p CE-IOL left eye [...] weeks Assessment & Plan (07/29/2020 11:05 AM QUILL MACHINE TENDER): Post-operative day #1 s/p CE-IOL left eye [...] 03/09/2020 Assessment & Plan (06/16/2024 10:43 AM QUILL MACHINE TENDER): -s/p CEIOL with deep AC OU -follow Assessment & Plan (06/11/2023 2:36 PM QUILL MACHINE TENDER): -now s/p CEIOL with deep AC OU [...] (04/19/2020): Added automatically from request for surgery [id number] Assessment & Plan (07/03/2020 10:13 AM QUILL MACHINE TENDER): POM1 Phaco/IOL/ right eye 06/03/20 Off all drops doing well Plan for CEIOL OS Plan for phaco/IOL left eye Assessment & Plan (06/05/2020 9:15 AM QUILL MACHINE TENDER): POW1 Phaco/IOL/ right eye 06/03/20 Postoperative instructions [...] eye Assessment & Plan (05/30/2020 10:56 PM QUILL MACHINE TENDER): POD1 Phaco/IOL/ right eye 06/03/20 Postoperative instructions [...] (07/18/2018): Added automatically from request for surgery [id number] Left groin hernia 06/05/2018 08/19/2018 Chest wall [...] on file Legal Sex Male 11:10 AM QUILL MACHINE TENDER Gender Identity Not on file Sexual Orientation Not on file Last Filed Vital Signs Vital Sign Reading Time Taken Comments Blood Pressure 166/81 09/04/2024 1:22 PM QUILL MACHINE TENDER Pulse 54 09/04/2024 1:22 PM QUILL MACHINE TENDER Temperature 36.3 C (97.4 F) 09/04/2024 1:22 PM QUILL MACHINE TENDER Respiratory Rate 18 09/04/2024 1:22 PM QUILL MACHINE TENDER Oxygen Saturation 100% 09/04/2024 1:22 PM QUILL MACHINE TENDER Inhaled Oxygen Concentration - - Weight 69.4 kg (153 lb) 09/03/2024 10:54 AM QUILL MACHINE TENDER Height 170.2 cm (5' 7 ) 05/29/2024 8:32 AM QUILL MACHINE TENDER Body Mass Index 23.96 05/29/2024 8:32 AM QUILL MACHINE TENDER Plan of Treatment Not on file Medical Devices Implanted Type Area Imaging Technologist Device Identifier Shelf Expiration Date Model / Serial / Lot [email or web address] [id number] - [id number] - [id number] Implanted:Qty: 1 on 06/03/2020 by Jenifer Ugarte MD at [facility] Lens Right: Eye [email or web address] [id number] 11/19/2022 [id number] / [id number] [employer] [id number] - [id number] - [id number] Implanted:Qty: 1 on 07/29/2020 by Jenifer Ugarte MD at [facility] Lens Left: Lens [employer] 05/22/2022 [id number] / [id number] [employer]/C R Bard [id number] Soft Mesh 6x6in Patch Knitted Flat Sheet Groin Hernia Square Mesh - Sn/A - [id number] Implanted:Qty: 1 on 07/30/2018 by Jenifer Ellis MD at [facility] Mesh [employer] [id number] 04/19/2023 [id number] / N/A / [id number] Stent Stent N/A: Heart Procedures Procedure Name Priority Date/Time Associated Diagnosis Comments MEASURE POST VOID RESIDUAL Routine 10/30/2024 2:05 PM CDT Benign prostatic hyperplasia with weak urinary stream MEASURE POST VOID RESIDUAL Routine 09/04/2024 1:23 PM QUILL MACHINE TENDER Weak urinary stream from Last 3 Months Results * Measure post void residual (10/30/2024 2:05 PM CDT) Vaishnavi Ramos LPN - 10/30/2024 2:05 PM CDT Measurement of post-voiding residual urine and/or bladder capacity by ultrasound, non-imaging. PVR = 92 mL us Jessa Rodrigez STAINED GLASS INSTALLER NURSING ASSESSMENTS Final Res ult * Measure post void residual (09/04/2024 1:23 PM QUILL MACHINE TENDER) Narrative Vaishnavi Deluca LPN - 09/04/2024 1:23 PM QUILL MACHINE TENDER Measurement of post-voiding residual urine and/or bladder capacity by ultrasound, non-imaging. PVR = 5 mL us Jessa Rodrigez STAINED GLASS INSTALLER NURSING ASSESSMENTS Final Res ult from Last 3 Months Insurance AETNA MEDICARE [employer] OPEN ACCESS MEDICARE [facility] [id number] Care Teams Dye Penetrant Testing Technician Relationship Specialty Start Date End Date Calvin White MD [address] [place] [address] PCP - General 10/14/17
--- OUTSIDE RECORDS SUMMARY | 2024-11-26 20:18 | XMS_ITS | Clinical Summary ---
Author Organization [facility] Address [address] [place] [address] Care Team Providers Care Construction Project Administrator Name Role Phone Calvin White MD Primary Care Provider Source Comments [facility],non-owned Affiliates and Associated Physician Practices is amultiple site organization consisting of ambulatory clinics and hospital sitesin [place], [place], [place] and [place]. This disclosure is being madepursuant to the Care Everywhere program and may not contain all information available regarding this patient. Last updated 18.[facility] Allergies No known active allergies Medications * [...] age to complete this topic Insurance MEDICARE [employer] Care Teams Construction Project Administrator Relationship Specialty Start Date End Date Calvin White MD [address] [place] [address] PCP - General Internal Medicine 03/30/17
--- OUTSIDE RECORDS SUMMARY | 2024-11-26 20:18 | XMS_ITS | Continuity of Care Document ---
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 [address] [facility], [place], [address], [place]. tel:[phone] Referring Provider: Wilfredo Powell MD, [address] [place] [address], [address]. tel:[phone] Family History Family Member Type Diagnosis Age At Onset No Information Payers Payer name Insurance type Covered constitution party ID Authoriza tion(s) No Information Social History Type Description Quantity Date Captured Comments Sex Male Smoking Status No Information Chief Complaint And Reason For Visit No Information Reason For Referral Reason For Referral No Information History Of Present Illness Encounter Date Complaint History Of Prese nt Illness No Information Functional Status Date Functional Assessmen t No Information Instructions Date Instruction Additional Infor mation No Information Assessments Type Assessment Date No Information Patient Care Teams Name Effective Dates (start - stop) Status Members No Information
[2024-11-26] MEDS: CEPHALEXIN 500 MG CAPSULE PO (20:37)
[2024-11-26 20:42] VITALS: BP 130/74; PULSE 77; RESP 15; O2SAT 98
== END 2024-11-26 20:44 | disposition home or self-care (01) ==
PROVIDERS: Emergency Provider Emergency Medicine; PCP Internal Medicine
DX: S67.192A Crushing injury of right middle finger, initial encounter (principal); Z23 Encounter for immunization; I10 Essential (primary) hypertension; E78.5 Hyperlipidemia, unspecified; W23.0XXA Caught, crushed, jammed, or pinched between moving objects, initial encounter; R93.6 Abnormal findings on diagnostic imaging of limbs
CPT/HCPCS: 12002; 73140; 90471; 90715; 99283; A9270